=== PATIENT | female | born 1985 | race American Indian/Alaskan Native ===

== ENCOUNTER 2017-03-07 03:18 | Inpatient (IN) | payer BC, MEDICAID ==
[2017-03-07] MEDS: LACTATED RINGERS 1,000 ML IV SCH ×2 (04:00→05:15)
[2017-03-07] MEDS ORDERED: MINERAL OIL PO PRN (04:09)
[2017-03-07] MEDS ORDERED: ePHEDrine SULFATE IV PRN ×2 (04:09→06:19)
[2017-03-07] MEDS ORDERED: BRETHINE IVP PRN (04:09)
[2017-03-07] MEDS ORDERED: XYLOCAINE 2% INFILTRATI ONE (04:09)
[2017-03-07] MEDS ORDERED: SUBLIMAZE IV PRN (04:09)
[2017-03-07] MEDS ORDERED: BRETHINE SUB-Q PRN (04:09)
--- NOTE | 2017-03-07 04:21 | History and Physical Report ---
History of Present Illness Date of examination: 03/07/17 Date of admission: 03/07/17 03:56 Chief complaint: contractions History of present illness: Pt presents in active labor. GBS negative. Late PNC at 33wks. h/o MJ use. EDC Confirmation: 03/20/2017 Gestational Age: 33 3/7 weeks Past History : 3 Term Births: 2 Premature Births: 0 Living Children: 2 Para: 2 Mult. Births: 0 Prev : 0 Prev. attempt? 0 Aborta: 0 Elect. Ab: 0 Spont. Ab: 0 Ectopics: 0 # 1 Delivery date: 03/01/2006 Weeks Gestation: 40 labor: no Delivery type: Hours of labor: 15 Anesthesia type: epidural Delivery location: [facility] Infant Sex: Female weight: 8-? Name: Javy Comments: Elective induction # 2 Delivery date: 03/17/2011 Weeks Gestation: 39 labor: no Delivery type: Hours of labor: 8 Anesthesia type: none Delivery location: [facility] Sex: Male weight: 8-? Name: Brenda Past Medical History: Negative Past Medical History Past Surgical History: Negative Past Surgical History Family History Summary: Other family member - Has No Family History of Ovarvian Cancer - Entered On: Other family member - Has No Family History of Colon Cancer - Entered On: 2016 Other family member - Has No Family History of Breast Cancer - Entered On: 2016 Other family member - Has Family History of Hypertension - Entered On: 02/02/2017 Other family member - Has Family History of Diabetes - Entered On: 02/02/2017 Social History: Patient is single [employer] Risk Factors: Smoked Tobacco Use: Never smoker Drug use: yes Substance: marijuana HIV high-risk behavior: low risk Alcohol use: yes Drinks per day: 2 Dietary Counseling: pn yes Past Medical History 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 of genital herpes: no Partner hx. of genital herpes: no Genetic History Congenital Heart Defect: Mom: no Dad: no Miguelangel Disease: Mom: no Dad: no Thalassemia Mom: no Dad: no Neural Tube Defect Mom: no Dad: no Down's Syndrome Mom: no Dad: no Eduardo-Sachs Mom: no Dad: no Sickle Cell Disease/Trait Mom: no Dad: no Hemophilia Mom: no Dad: no Muscular Dystrophy Mom: no Dad: no Cystic Fibrosis Mom: no Dad: no [place] Chorea Mom: no Dad: no Mental Retardation Mom: no Dad: no Fragile X Mom: no Dad: no Other Genetic/Chromosomal Disorder Mom: no Dad: no Child w/other defect Mom: no Dad: no Active Medications (reviewed today): FORMULA 27-1 MG ORAL TABS ( VIT-FE FUMARATE-FA) 1 po q day as directed Current Allergies (reviewed today): No known allergies Past History Past Medical History: no pertinent history Past Surgical History: no surgical history [employer] History: chlamydia Social history: no significant social history - Obstetrical History Expected Date of Delivery: 03/20/17 Actual Gestation: 38 Week(s) 1 Day(s) : 3 Para: 2 Number of Living Children: 2 Medications and Allergies Allergies Allergy/AdvReac Type Severity Reaction Status Date / Time No Known Allergies Allergy Unverified 03/07/17 03:49 Active Meds: Active Medications Ephedrine Sulfate (Ephedrine Sulfate) 10 mg IV Q2M PRN PRN Reason: Hypotension Stop: 03/07/17 04:14 Fentanyl (Sublimaze) 100 mcg IV Q2H PRN PRN Reason: Labor Pain Lactated Ringer's (Lactated Ringers) 1,000 mls @ 125 mls/hr IV DIRECT [place] Oxytocin/Sodium Chloride (Pitocin/Ns 20 Unit/1000ml Drip) 20 units in 1,000 mls @ 125 mls/hr IV DIRECT [place] Oxytocin/Sodium Chloride (Pitocin/Ns 30 Unit/500ml) 30 units in 500 mls @ 1 mls /hr IV TITR [place]; 1 MILLIUNITS/MIN PRN Reason: Protocol Lidocaine (Xylocaine 2%) 20 ml INFILTRATI ONCE ONE Stop: 03/07/17 04:10 Mineral Oil (Mineral Oil) 30 ml PO QHS PRN PRN Reason: Constipation Terbutaline Sulfate (Brethine) 0.25 mg SUB-Q ONCE PRN PRN Reason: Hyperstimulation/Hypertonicity Stop: 03/07/17 04:10 Terbutaline Sulfate (Brethine) 0.25 mg IVP ONCE PRN PRN Reason: Hyperstimulation/Hypertonicity Stop: 03/07/17 04:10 Review of Systems All systems: negative - Vital Signs Vital signs: Vital Signs Pulse BP 69 121/80 03/07/17 03:35 03/07/17 03:35 Temp Pulse Resp BP Pulse Ox 67 139/86 03/07/17 04:16 03/07/17 04:16 - Obstetrical Cervical Dilatation: 5 (as per triage nurse) Cervical Effacement Percentage: 100 station: -2 Uterine Contraction Pattern: Regular Uterine Tone Measurement Phase: Resting Uterine Contraction Intensity: Moderate Results All other labs normal. Assessment and Plan - Patient Problems (1) 38 weeks gestation of Current Visit: Yes Status: Acute (2) Active labor at term Current Visit: Yes Status: Acute Plan to address problem: -admit -GBS negative -anticipate (3) Limited care in third trimester Current Visit: Yes Status: Acute
[2017-03-07 04:34] LABS: Hematocrit 34.7 % (30.3-42.9); Hemoglobin 11.5 gm/dl (10.1-14.3); Mean Corpuscular HGB Conc 33 % (30-34); Mean Corpuscular Hemoglobin 31 pg (28-32); Mean Corpuscular Volume 94 fl (79-97); Platelet Count 223 K/mm3 (140-440); Red Blood Count 3.68 M/mm3 (3.65-5.03); Red Cell Distribution Width 14.7 % (13.2-15.2); White Blood Count 5.4 K/mm3 (4.5-11.0)
[2017-03-07] MEDS ORDERED: PITOCin/NS 20 UNIT/1000ML DRIP 20 UNITS/1,000 ML BAG IV SCH (05:00)
[2017-03-07] MEDS ORDERED: PITOCin/NS 30 UNIT/500ML 30 UNITS/500 ML BAG IV SCH (05:00)
[2017-03-07] MEDS ORDERED: ePHEDrine SULFATE ONE (05:51)
[2017-03-07] MEDS ORDERED: NARCAN 2 MG/2 ML IV PRN (06:19)
--- NOTE | 2017-03-07 06:19 | Anesthesia Consultation ---
Anesthesia Consult and Med Hx Date of service: 03/07/17 - Airway Anesthetic Teeth Evaluation: Good ROM Head & Neck: Adequate Mental/Hyoid Distance: Adequate Mallampati Class: Class II Intubation Access Assessment: Good - Pulmonary Exam CTA: Yes - Cardiac Exam Cardiac Exam: No Murmur - Pre-Operative Health Status ASA Pre-Surgery Classification: ASA2 Proposed Anesthetic Plan: Epidural - Pulmonary Hx Asthma: No COPD: No Hx Pneumonia: No - Cardiovascular System Hx Hypertension: No - Central Nervous System Hx Seizures: No Hx Psychiatric Problems: No - Endocrine Hx Renal Disease: No Hx End Stage Renal Disease: No Hx Hypothyroidism: No Hx Hyperthyroidism: No - Hematic Hx Anemia: No Hx Sickle Cell Disease: No
[2017-03-07] MEDS ORDERED: fentaNYL-BUPIV 2 MCG/ML-0.125% 200 MCG/100 ML BAG EPIDURAL SCH (07:00)
--- NOTE | 2017-03-07 07:31 | Procedure Note ---
OB Delivery Note - Delivery Date of Delivery: 03/07/17 Surgeon: WANDA BARR Estimated blood loss: 200cc - Vaginal Delivery presentation: vertex Delivery position: OA Intrapartum events: none Delivery induction: none Delivery augmentation: rupture of membranes Delivery monitor: external FHT, external uterine Route of delivery: Delivery placenta: spontaneous Episiotomy: none Delivery laceration: 1st degree (periurethral.) Anesthesia: epidural - Infant A at 1 minute: 8 at 5 minutes: 9 Gender: Female (3528g)
[2017-03-07] MEDS ORDERED: SODIUM CHLORIDE FLUSH SYRINGE 10 ML IV PRN (08:00)
[2017-03-07] MEDS ORDERED: NORCO 5/325 PO PRN (08:30)
[2017-03-07] MEDS ORDERED: PHENERGAN PR PRN (08:30)
[2017-03-07] MEDS ORDERED: TYLENOL PO PRN (08:30)
[2017-03-07] MEDS ORDERED: TUCKS PAD TP PRN (08:30)
[2017-03-07] MEDS ORDERED: ZOFRAN IV PRN (08:30)
[2017-03-07] MEDS ORDERED: BENADRYL PO PRN (08:30)
[2017-03-07] MEDS ORDERED: LANSINOH TP PRN (08:30)
[2017-03-07] MEDS ORDERED: PHENERGAN PO PRN (08:30)
[2017-03-07] MEDS: MOTRIN PO SCH ×2 (08:54→18:45)
[2017-03-07] MEDS ORDERED: DULCOLAX PR PRN (10:00)
--- NOTE | 2017-03-07 14:37 | Progress Note ---
Subjective Date of service: 03/07/17 Principal diagnosis: IUP Interval history: Pt seen post delivery day 1, satisfied with epidural, ambulating, and is pain free, Objective - Constitutional Vitals: Vital Signs - 12hr 03/07/17 03/07/17 03/07/17 03:35 04:16 04:22 Temperature Pulse Rate 69 67 76 Respiratory Rate Blood Pressure 121/80 139/86 Blood Pressure [Right] O2 Sat by Pulse 100 Oximetry 03/07/17 03/07/17 03/07/17 04:26 04:31 04:32 Temperature 97.2 F L Pulse Rate 73 83 83 Respiratory 20 Rate Blood Pressure Blood Pressure 139/86 [Right] O2 Sat by Pulse 100 97 97 Oximetry 03/07/17 03/07/17 03/07/17 04:36 04:42 04:46 Temperature Pulse Rate 65 70 74 Respiratory Rate Blood Pressure Blood Pressure [Right] O2 Sat by Pulse 100 97 100 Oximetry 03/07/17 03/07/17 03/07/17 04:51 04:57 05:01 Temperature Pulse Rate 81 63 73 Respiratory Rate Blood Pressure Blood Pressure [Right] O2 Sat by Pulse 100 100 96 Oximetry 03/07/17 03/07/17 03/07/17 05:06 05:12 05:17 Temperature Pulse Rate 73 73 77 Respiratory Rate Blood Pressure Blood Pressure [Right] O2 Sat by Pulse 100 99 100 Oximetry 03/07/17 03/07/17 03/07/17 05:22 05:27 05:32 Temperature Pulse Rate 73 76 67 Respiratory Rate Blood Pressure Blood Pressure [Right] O2 Sat by Pulse 98 99 98 Oximetry 03/07/17 03/07/17 03/07/17 05:37 05:41 05:47 Temperature Pulse Rate 82 79 73 Respiratory Rate Blood Pressure Blood Pressure [Right] O2 Sat by Pulse 98 98 98 Oximetry 03/07/17 03/07/17 03/07/17 05:52 05:57 06:01 Temperature Pulse Rate 76 75 85 Respiratory Rate Blood Pressure Blood Pressure [Right] O2 Sat by Pulse 96 99 99 Oximetry 03/07/17 03/07/17 03/07/17 06:02 06:04 06:06 Temperature Pulse Rate 76 81 79 Respiratory Rate Blood Pressure 131/83 129/82 125/68 Blood Pressure [Right] O2 Sat by Pulse Oximetry 03/07/17 03/07/17 03/07/17 06:07 06:08 06:10 Temperature Pulse Rate 63 70 73 Respiratory Rate Blood Pressure 134/68 125/68 Blood Pressure [Right] O2 Sat by Pulse 100 Oximetry 03/07/17 03/07/17 03/07/17 06:12 06:14 06:16 Temperature Pulse Rate 68 72 71 Respiratory Rate Blood Pressure 131/69 157/82 128/71 Blood Pressure [Right] O2 Sat by Pulse 100 Oximetry 03/07/17 03/07/17 03/07/17 06:17 06:18 06:20 Temperature Pulse Rate 75 76 74 Respiratory Rate Blood Pressure 131/68 117/71 Blood Pressure [Right] O2 Sat by Pulse 97 Oximetry 03/07/17 03/07/17 03/07/17 06:22 06:24 06:26 Temperature Pulse Rate 78 69 69 Respiratory Rate Blood Pressure 118/69 122/68 121/68 Blood Pressure [Right] O2 Sat by Pulse 99 Oximetry 03/07/17 03/07/17 03/07/17 06:27 06:28 06:32 Temperature Pulse Rate 74 65 66 Respiratory Rate Blood Pressure 126/70 Blood Pressure [Right] O2 Sat by Pulse 98 100 Oximetry 03/07/17 03/07/17 03/07/17 06:36 06:41 06:42 Temperature Pulse Rate 72 76 83 Respiratory Rate Blood Pressure 120/68 132/69 Blood Pressure [Right] O2 Sat by Pulse 98 99 Oximetry 03/07/17 03/07/17 03/07/17 06:45 06:55 07:11 Temperature Pulse Rate 81 81 72 Respiratory Rate Blood Pressure 129/71 140/65 119/70 Blood Pressure [Right] O2 Sat by Pulse Oximetry 03/07/17 03/07/17 03/07/17 07:26 07:41 07:48 Temperature 97.5 F L Pulse Rate 64 66 Respiratory 18 Rate Blood Pressure 134/82 128/75 Blood Pressure [Right] O2 Sat by Pulse Oximetry 03/07/17 03/07/17 03/07/17 07:57 08:12 08:30 Temperature 97.6 F Pulse Rate 74 61 61 Respiratory 18 Rate Blood Pressure 138/69 113/55 Blood Pressure 112/62 [Right] O2 Sat by Pulse Oximetry 03/07/17 12:34 Temperature 98.7 F Pulse Rate 64 Respiratory 18 Rate Blood Pressure 124/76 Blood Pressure [Right] O2 Sat by Pulse 96 Oximetry - Labs CBC & Chem 7: 03/07/17 04:20
[2017-03-07 19:39] LABS: Hematocrit 28.4 % (30.3-42.9); Hemoglobin 9.8 gm/dl (10.1-14.3)
[2017-03-07] MEDS ORDERED: MILK OF MAGNESIA PO PRN (22:00)
--- NOTE | 2017-03-08 07:57 | Discharge Summary ---
Providers - Providers Date of Admission: 03/07/17 03:56 Date of discharge: 03/08/17 (pt req d/c today) Attending physician: WANDA BARR Primary care physician: WANDA BARR Hospitalization Reason for admission: active labor Delivery: Episiotomy: none Laceration: none Incision: normal Other procedures: none complications: none Discharge diagnosis: IUP at term delivered baby: female Hospital course: uncomplicated vaginal delivery pt w/o complaint VSS FF below umb Lochia small perineum intact H&H stable No s/ sx of anemia Doing well s/p vag del P: d/c today with instructions RTO 4 week PP care RX provided @ d/c Depo prior to d/c Condition at discharge: Good Disposition: DC-01 TO HOME OR SELFCARE - Discharge Diagnoses (1) Spontaneous vaginal delivery Status: Acute Comment: rto 4 weeks pp care Plan - Discharge Medications Prescriptions: Docusate Sodium [Colace] 100 mg PO BID PRN #60 capsule PRN Reason: Constipation Ferrous Sulfate [Feosol 325 MG tab] 325 mg PO BID #60 tablet Ibuprofen [Motrin 800 MG tab] 800 mg PO TID PRN #30 tablet PRN Reason: Pain Lidocain2.5%/Prilocai2.5% [Emla] 5 gm TP PRN #1 tube - Provider Discharge Summary Activity: routine, no sex for 6 weeks, no heavy lifting 4 weeks, no strenuous exercise Diet: routine Instructions: routine Additional instructions: [] Smoking cessation referral if applicable(refer to patient education folder for contact #) [] Refer to [facility]'s [facility] Booklet Call your doctor immediately for: * Fever > 100.5 * Heavy vaginal bleeding ( >1 pad per hour) * Severe persistent headache * Shortness of breath * Reddened, hot, painful area to leg or breast * Drainage or odor from incision. * Keep incision clean and dry at all times and follow doctor's instructions regarding bathing/showering - Follow up plan Follow up: WANDA BARR MD [Primary Care Provider] - 04/09/17 (Congratulations! Please call [phone] to schedule your visit in 4 weeks. Take medications as prescribed. Call with concerns. )
[2017-03-08 08:35] VITALS: BP 120/79
--- NOTE | 2017-03-08 13:00 | Progress Note ---
Subjective Date of service: 03/08/17 Principal diagnosis: IUP Interval history: 1st day after normal vaginal delivery Patient is in the bed, comfortable. Pain is well controlled with pain meds. Ambulated well. No residual neurological deficit. No anesthesia complications Objective - Constitutional Vitals: Vital Signs - 12hr 03/08/17 03/08/17 02:55 08:15 Temperature 98.7 F 98.3 F Pulse Rate 64 59 L Respiratory 20 18 Rate Blood Pressure 109/81 120/79 [Right] O2 Sat by Pulse 98 97 Oximetry - Labs CBC & Chem 7: 03/07/17 19:13 Labs: Abnormal lab results 03/07/17 Range/Units 19:13 Hgb 9.8 L (10.1-14.3) gm/dl Hct 28.4 L D (30.3-42.9) %
[2017-03-08] MEDS ORDERED: DEPO-PROVERA (CONTRACEPTION) IM ONE (13:59)
== END 2017-03-08 16:15 | disposition home or self-care (01) | DRG 775 ==
LOC: TRG 03:18 → LD 03:56 → OB 08:39
PROVIDERS: ADMIT Obstetrics & Gynecology; ATTEND Obstetrics & Gynecology
PROC: 10E0XZZ Delivery of Products of Conception, External Approach (ICD-10-PCS; principal; 2017-03-07)
PROC: 0HQ9XZZ Repair Perineum Skin, External Approach (ICD-10-PCS; 2017-03-07)
PROC: 3E0R3BZ Introduction of Anesthetic Agent into Spinal Canal, Percutaneous Approach (ICD-10-PCS; 2017-03-07)
PROC: 00HU33Z Insertion of Infusion Device into Spinal Canal, Percutaneous Approach (ICD-10-PCS; 2017-03-07)
DX: O70.0 First degree perineal laceration during delivery (principal); Z3A.38 38 weeks gestation of pregnancy; Z82.49 Family history of ischemic heart disease and other diseases of the circulatory system; Z83.3 Family history of diabetes mellitus; Z37.0 Single live birth
CPT/HCPCS: 36415; 85014; 85018; 85027; 86592; 86850; 86900; 86901; J1050; J2590; J3010; J7120

== ENCOUNTER 2019-01-20 10:19 | Emergency (ER) | payer BC, MEDICAID, OTHER ==
[2019-01-20 10:41] VITALS: BP 164/93
[2019-01-20 11:03] LABS: Basophils % (Auto) 0.5 % (0.0-1.8); Eosinophils # (Auto) 0.1 K/mm3 (0.0-0.4); Eosinophils % (Auto) 1.7 % (0.0-4.3); Hematocrit 41.6 % (30.3-42.9); Hemoglobin 14.2 gm/dl (10.1-14.3); Lymphocytes # (Auto) 1.3 K/mm3 (1.2-5.4); Lymphocytes % (Auto) 21.9 % (13.4-35.0); Mean Corpuscular HGB Conc 34 % (30-34); Mean Corpuscular Volume 100 fl (79-97); Monocytes # (Auto) 0.5 K/mm3 (0.0-0.8); Monocytes % (Auto) 7.9 % (0.0-7.3); Platelet Count 280 K/mm3 (140-440); Red Blood Count 4.15 M/mm3 (3.65-5.03); Red Cell Distribution Width 13.8 % (13.2-15.2)
[2019-01-20 11:21] LABS: BUN/Creatinine Ratio 7; Blood Urea Nitrogen 6 mg/dL (7-17); Hemolysis Index 4
--- NOTE | 2019-01-20 11:28 | Emergency Department Report ---
ED Chest Pain HPI - General Chief Complaint: Chest Pain Stated Complaint: CHEST PAIN/SOB/DIZZY Time Seen by Provider: 01/20/19 11:20 Source: patient Mode of arrival: Ambulatory Limitations: No Limitations - History of Present Illness Initial Comments: Patient is 33 years old female with no significant past medical history. Patient presented to the ER complaining of substernal chest pain, tightness. Patient stated that pain started this morning, continued for approximately 5 minutes and went away. Patient denied any shortness of breath, cough or chills. Patient also denied any abdominal pain nausea or vomiting. MD Complaint: chest pain -: This morning Onset: during rest Pain Location: substernal Pain Radiation: none Quality: tightness Consistency: now resolved - Related Data Previous Rx's Medication Instructions Recorded Last Taken Type Docusate Sodium [Colace] 100 mg PO BID PRN #60 capsule 03/08/17 Unknown Rx Ferrous Sulfate [Feosol 325 MG tab] 325 mg PO BID #60 tablet 03/08/17 Unknown Rx Ibuprofen [Motrin 800 MG tab] 800 mg PO TID PRN #30 tablet 03/08/17 Unknown Rx Lidocain2.5%/Prilocai2.5% [Emla] 5 gm TP PRN #1 tube 03/08/17 Unknown Rx Allergies Allergy/AdvReac Type Severity Reaction Status Date / Time No Known Allergies Allergy Unverified 03/07/17 03:49 Heart Score - HEART Score History: Slightly suspicious EKG: Normal Age: < 45 Risk factors: No known risk factors Troponin: < normal limit HEART Score: 0 - Critical Actions Critical Actions: 0-3 pts:0.9-1.7%risk of adverse cardiac event.Candidate for discharge ED Review of Systems ROS: Stated complaint: CHEST PAIN/SOB/DIZZY Other details as noted in HPI Comment: All other systems reviewed and negative Constitutional: denies: chills, fever Respiratory: denies: cough, shortness of breath, SOB with exertion, wheezing Cardiovascular: chest pain. denies: palpitations, dyspnea on exertion Gastrointestinal: denies: abdominal pain, nausea, vomiting, diarrhea, constipation, hematemesis, melena, hematochezia Musculoskeletal: denies: back pain Neurological: denies: headache, weakness, numbness, paresthesias, confusion, abnormal gait ED Past Medical Hx - Past Medical History Previous Medical History?: Yes Hx Hypertension: No Hx Congestive Heart Failure: No Hx Diabetes: No Hx Deep Vein Thrombosis: No Hx Renal Disease: No Hx Sickle Cell Disease: No Hx Seizures: No Hx Asthma: No Hx COPD: No Hx HIV: No - Surgical History Past Surgical History?: No - Social History Smoking Status: Never Smoker Substance Use Type: Alcohol - Medications Home Medications: Home Medications Medication Instructions Recorded Confirmed Last Taken Type Docusate Sodium [Colace] 100 mg PO BID PRN #60 capsule 03/08/17 Unknown Rx Ferrous Sulfate [Feosol 325 MG tab] 325 mg PO BID #60 tablet 03/08/17 Unknown Rx Ibuprofen [Motrin 800 MG tab] 800 mg PO TID PRN #30 tablet 03/08/17 Unknown Rx Lidocain2.5%/Prilocai2.5% [Emla] 5 gm TP PRN #1 tube 03/08/17 Unknown Rx ED Physical Exam - General Limitations: No Limitations General appearance: alert, in no apparent distress - Head Head exam: Present: atraumatic, normocephalic, normal inspection - Eye Eye exam: Present: normal appearance - ENT ENT exam: Present: normal exam, normal orophraynx, mucous membranes moist - Neck Neck exam: Present: normal inspection, full ROM. Absent: tenderness, meningismu s, lymphadenopathy, thyromegaly - Respiratory Respiratory exam: Present: normal lung sounds bilaterally - Cardiovascular Cardiovascular Exam: Present: regular rate, normal rhythm, normal heart sounds - GI/Abdominal GI/Abdominal exam: Present: soft, normal bowel sounds. Absent: distended, tenderness, guarding, rebound, rigid - Extremities Exam Extremities exam: Present: normal inspection, full ROM, normal capillary refill. Absent: pedal edema, calf tenderness - Back Exam Back exam: Present: normal inspection, full ROM. Absent: CVA tenderness (R), CVA tenderness (L), muscle spasm, paraspinal tenderness, vertebral tenderness - Neurological Exam Neurological exam: Present: alert, oriented X3, CN II-XII intact, normal gait, reflexes normal - Psychiatric Psychiatric exam: Present: normal mood - Skin Skin exam: Present: warm, intact, normal color ED Course Vital Signs 01/20/19 10:39 Temperature 98.3 F Pulse Rate 76 Respiratory 18 Rate Blood Pressure 164/93 O2 Sat by Pulse 100 Oximetry ED Medical Decision Making - Lab Data Result diagrams: 01/20/19 10:46 01/20/19 10:46 - EKG Data -: EKG Interpreted by Me EKG shows normal: sinus rhythm Rate: normal - EKG Data Interpretation: no acute changes - Radiology Data Radiology results: report reviewed - Medical Decision Making Patient is 33 years old female with no significant past medical history. P luh presented to the ER complaining of substernal chest pain, tightness. Patient stated that pain started this morning, continued for approximately 5 minutes and went away. Patient denied any shortness of breath, cough or chills. Patient also denied any abdominal pain nausea or vomiting. Patient EKG is unremarkable. Chest x-ray is negative for acute finding. Labs reviewed and is unremarkable. 2 sets of troponin is negative. Patient's symptoms completely resolved. Patient advised to follow-up with her primary care physician for outpatient workup including stress test and further testing to make sure that no cardiac issue. Patient also advised to return to the ER if symptoms are not improved. Critical care attestation.: If time is entered above; I have spent that time in minutes in the direct care of this critically ill patient, excluding procedure time. ED Disposition Clinical Impression: Chest pain, Malignant hypertension Disposition: DC-01 TO HOME OR SELFCARE Is pt being admited?: No Condition: Stable Instructions: Chest Pain (ED), Hypertension (ED) Referrals: [facility] [Provider Group] - 3-5 Days
--- NOTE | 2019-01-20 12:22 | XRay Report ---
CHEST 1 VIEW INDICATION: Chest Pain. COMPARISON: None FINDINGS: Support devices: None. Heart: Within normal limits. Lungs/Pleura: No acute air space or interstitial disease. Additional findings: None. IMPRESSION: No acute findings. Signer Name: Dinesh Em Jr, MD Signed: 01/20/2019 12:17 PM Workstation Name: [id number]
== END 2019-01-20 14:42 | disposition home or self-care (01) ==
LOC: ED 10:19
DX: I10 Essential (primary) hypertension (principal); Z79.899 Other long term (current) drug therapy; Z79.1 Long term (current) use of non-steroidal anti-inflammatories (NSAID)
CPT/HCPCS: 36415; 71045; 80048; 84484; 85025; 93005; 93010; 99284